=== PATIENT | male | born 1975 | race Caucasian/White ===

== ENCOUNTER → 2016-10-01 | Outpatient (REF) | payer MEDICARE, MEDICAID ==
[2016-10-01 18:36] LABS: ALBUMIN 4.6 GM/DL (3.2-5.2); ALBUMIN/GLOBULIN RATIO 1.59 (1.00-1.93); ALKALINE PHOSPHATASE 88 U/L (45-117); ALT/SGPT 37 U/L (12-78); ANION GAP 11 MEQ/L (8-16); AST/SGOT 23 U/L (15-37); BILIRUBIN,TOTAL 0.4 MG/DL (0.2-1.0); BLOOD UREA NITROGEN 4 MG/DL (7-18); CALCIUM LEVEL 9.4 MG/DL (8.5-10.1); CARBON DIOXIDE LEVEL 28 MEQ/L (21-32); CHLORIDE LEVEL 104 MEQ/L (98-107); CREATININE FOR GFR 0.74 MG/DL (0.70-1.30); GLOMERULAR FILTRATION RATE > 60.0 (>60); GLUCOSE, FASTING 83 MG/DL (70-105); SODIUM LEVEL 143 MEQ/L (136-145); TOTAL PROTEIN 7.5 GM/DL (6.4-8.2)
[2016-10-01 19:02] LABS: BASO % 0.7 % (0.0-1.0); EOS # 0.1 K/mm3 (0.0-0.50); EOS % 1.1 % (0.0-3.0); LARGE UNSTAINED CELL # 0.1 K/mm3 (0.0-0.4); LARGE UNSTAINED CELL % 1.8 % (0.0-4.0); MEAN CORPUSCULAR HEMOGLOBIN 30.7 pg (27.0-33.0); MEAN CORPUSCULAR HGB CONC 33.6 g/dl (32.0-36.5); MEAN CORPUSCULAR VOLUME 91.5 fl (80.0-96.0); MONO # 0.7 K/mm3 (0.0-0.8); MONO % 9.6 % (0.0-5.0); NEUTROPHILS # 3.9 K/mm3 (1.8-7.7); NEUTROPHILS % 57.9 % (36.0-66.0); PLATELET COUNT, AUTOMATED 209 k/mm3 (150-450); RED CELL DISTRIBUTION WIDTH 12.7 % (11.5-14.5); WHITE BLOOD COUNT 6.8 K/mm3 (4.0-10.0)
== END ==
LOC: M LABNEURO 16:56
PROVIDERS: ATTEND Psychiatry & Neurology Neurology
DX: G35 Multiple sclerosis (principal)

== ENCOUNTER → 2017-03-28 | Outpatient (REF) | payer MEDICARE, MEDICAID ==
[2017-03-28 17:37] LABS: BASO # 0.1 K/mm3 (0.0-0.2); BASO % 1.2 % (0.0-1.0); EOS # 0.2 K/mm3 (0.0-0.50); LARGE UNSTAINED CELL # 0.1 K/mm3 (0.0-0.4); LARGE UNSTAINED CELL % 1.7 % (0.0-4.0); LYMPH # 2.6 K/mm3 (1.5-4.5); LYMPH % 31.8 % (24.0-44.0); MEAN CORPUSCULAR HEMOGLOBIN 31.5 pg (27.0-33.0); MEAN CORPUSCULAR HGB CONC 33.6 g/dl (32.0-36.5); MONO # 0.7 K/mm3 (0.0-0.8); MONO % 9.6 % (0.0-5.0); NEUTROPHILS # 4.1 K/mm3 (1.8-7.7); NEUTROPHILS % 53.7 % (36.0-66.0); PLATELET COUNT, AUTOMATED 232 k/mm3 (150-450); RED CELL DISTRIBUTION WIDTH 13.2 % (11.5-14.5); WHITE BLOOD COUNT 7.7 K/mm3 (4.0-10.0)
== END ==
LOC: M LABNEURO 17:03
PROVIDERS: ATTEND Psychiatry & Neurology Neurology
DX: G35 Multiple sclerosis (principal)

== ENCOUNTER 2017-09-25 09:41 | Outpatient (CLI) | payer MEDICARE, MEDICAID ==
[2017-09-25] MEDS: diphenhydrAMINE 25 MG CAP PO (10:18)
[2017-09-25] MEDS: methylPREDNISolone INJ 125 MG/2 ML VIAL (J2930) IV (10:18)
[2017-09-25] MEDS: ACETAMINOPHEN TAB 650MG DOSE (2X325MG) PO (10:18)
[2017-09-25] MEDS: OCRELIZUMAB 300 MG in NS 250 ML IV (10:39)
== END 2017-09-25 14:00 | disposition home or self-care (01) ==
LOC: M INFU 09:41
DX: G35 Multiple sclerosis (principal); Z79.899 Other long term (current) drug therapy
CPT/HCPCS: 96365

== ENCOUNTER 2018-02-10 07:49 | Outpatient (CLI) | payer MEDICARE, MEDICAID ==
[2018-02-10] MEDS: 0.22 MICRON FILTER (METHACHOLINE/OCREVUS) XX (08:15)
[2018-02-10] MEDS: diphenhydrAMINE 25 MG CAP PO (08:35)
[2018-02-10] MEDS: ACETAMINOPHEN TAB 650MG DOSE (2X325MG) PO (08:36)
[2018-02-10] MEDS: methylPREDNISolone INJ 125 MG/2 ML VIAL (J2930) IV (08:36)
[2018-02-10] MEDS: OCRELIZUMAB 600 MG in NS 500 ML IV (08:59)
== END 2018-02-10 13:05 | disposition home or self-care (01) ==
LOC: M INFU 07:49
DX: G35 Multiple sclerosis (principal); Z79.899 Other long term (current) drug therapy
CPT/HCPCS: J2930

== ENCOUNTER → 2018-04-04 | Outpatient (REF) | payer MEDICARE, MEDICAID ==
[2018-04-04 13:51] LABS: TOTAL 25(OH) VITAMIN D 20.9 NG/ML (30.0-100.0)
== END ==
LOC: M LABNEURO 11:55
DX: E55.9 Vitamin D deficiency, unspecified (principal)
CPT/HCPCS: 82306

== ENCOUNTER 2018-08-13 12:22 | Outpatient (CLI) | payer MEDICARE, MEDICAID ==
[~2018-08-13] VITALS: Ht 188 cm; Wt 104.5 kg
[~2018-08-13 12:22] MED LIST: CLON0.5T8 PO; CLON1TAB8 PO; FOLI1TAB5 PO; NEUR300C PO; OCRE300I IV; TECF240C PO
[2018-08-13 12:30] VITALS: BP 138/75
[2018-08-13] MEDS ORDERED: 0.22 MICRON FILTER (METHACHOLINE/OCREVUS) XX ONE (12:45)
[2018-08-13] MEDS ORDERED: diphenhydrAMINE 25 MG CAP PO ONE (12:45)
[2018-08-13] MEDS ORDERED: methylPREDNISolone INJ 125 MG/2 ML VIAL (J2930) IV ONE (12:45)
[2018-08-13] MEDS ORDERED: ACETAMINOPHEN TAB 650MG DOSE (2X325MG) PO ONE (12:45)
[2018-08-13] MEDS ORDERED: OCRELIZUMAB 600 MG in NS 500 ML IV ONE (13:00)
[2018-08-13 13:50] VITALS: BP 130/76
[2018-08-13 14:20] VITALS: BP 136/78
[2018-08-13 15:31] VITALS: BP 131/76
[2018-08-13 16:20] VITALS: BP 130/83
[2018-08-13 17:30] VITALS: BP 142/82
== END 2018-08-13 17:30 ==
LOC: M INFU 12:22
PROVIDERS: ATTEND Psychiatry & Neurology Neurology
DX: G35 Multiple sclerosis (principal)
CPT/HCPCS: 96365; 96366; 96375; J2930

== ENCOUNTER 2019-02-09 10:03 | Outpatient (CLI) | payer MEDICARE, MEDICAID ==
[2019-02-09] VITALS (8 sets, daily range): BP systolic 125–147; BP diastolic 79–89
[~2019-02-09] VITALS: Ht 188 cm; Wt 104.5 kg
[~2019-02-09 10:03] MED LIST changes: +FOLI1TAB11 PO; -FOLI1TAB5 PO
[2019-02-09] MEDS ORDERED: 0.22 MICRON FILTER (METHACHOLINE/OCREVUS) XX ONE (10:30)
[2019-02-09] MEDS ORDERED: methylPREDNISolone INJ 125 MG/2 ML VIAL (J2930) IV ONE (10:30)
[2019-02-09] MEDS ORDERED: diphenhydrAMINE 25 MG CAP PO ONE (10:30)
[2019-02-09] MEDS ORDERED: ACETAMINOPHEN TAB 650MG DOSE (2X325MG) PO ONE (10:30)
[2019-02-09] MEDS ORDERED: OCRELIZUMAB 600 MG in NS 500 ML IV ONE (11:00)
== END 2019-02-09 16:00 | disposition home or self-care (01) ==
LOC: M INFU 10:03
PROVIDERS: ATTEND Psychiatry & Neurology Neurology
DX: G35 Multiple sclerosis (principal)
CPT/HCPCS: 96413; 96415; J2930

== ENCOUNTER 2019-08-13 09:16 | Outpatient (CLI) | payer MEDICARE, MEDICAID ==
[~2019-08-13] VITALS: Ht 188 cm; Wt 104.5 kg
[~2019-08-13 09:16] MED LIST changes: +CLON0.5T2 PO; -CLON0.5T8 PO
[2019-08-13 09:30] VITALS: BP 138/91
[2019-08-13 10:30] VITALS: BP 136/95
[2019-08-13] MEDS ORDERED: OCRELIZUMAB 600 MG in NS 500 ML IV ONE (10:30)
[2019-08-13] MEDS ORDERED: ACETAMINOPHEN TAB 650MG DOSE (2X325MG) PO ONE (10:30)
[2019-08-13] MEDS ORDERED: methylPREDNISolone INJ 125 MG/2 ML VIAL (J2930) IV ONE (10:30)
[2019-08-13] MEDS ORDERED: diphenhydrAMINE 25 MG CAP PO ONE (10:30)
[2019-08-13 11:30] VITALS: BP 133/88
[2019-08-13 12:00] VITALS: BP 144/99
[2019-08-13 12:30] VITALS: BP 143/88
[2019-08-13 13:30] VITALS: BP 131/82
== END 2019-08-13 13:40 | disposition home or self-care (01) ==
LOC: M INFU 09:16
PROVIDERS: ATTEND Psychiatry & Neurology Neurology
DX: G35 Multiple sclerosis (principal)
CPT/HCPCS: 96413; 96415; J2930

== ENCOUNTER 2020-02-10 10:02 | Outpatient (CLI) | payer MEDICARE, MEDICAID ==
[2020-02-10] VITALS (7 sets, daily range): BP systolic 121–162; BP diastolic 68–100
[~2020-02-10] VITALS: Ht 188 cm; Wt 105.0 kg
[2020-02-10] MEDS ORDERED: diphenhydrAMINE 25MG CAP PO ONE (10:30)
[2020-02-10] MEDS ORDERED: methylPREDNISolone INJ 125 MG/2 ML VIAL (J2930) IV ONE (10:30)
[2020-02-10] MEDS ORDERED: ACETAMINOPHEN TAB 650MG DOSE (2X325MG) PO ONE (10:30)
[2020-02-10] MEDS ORDERED: OCRELIZUMAB 600 MG in NS 500 ML IV ONE (10:45)
== END 2020-02-10 15:35 | disposition home or self-care (01) ==
LOC: M INFU 10:02
PROVIDERS: ATTEND Psychiatry & Neurology Neurology
DX: G35 Multiple sclerosis (principal)
CPT/HCPCS: 96375; 96413; 96415; J2930

== ENCOUNTER 2021-02-13 10:18 | Outpatient (CLI) | payer MEDICARE, MEDICAID ==
[2021-02-13] MEDS ORDERED: diphenhydrAMINE 25MG CAP PO ONE (10:30)
[2021-02-13] MEDS ORDERED: methylPREDNISolone 125MG 2ML VIAL IV ONE (10:30)
[2021-02-13] MEDS ORDERED: ACETAMINOPHEN TAB 650MG DOSE (2X325MG) PO ONE (10:30)
[2021-02-13] MEDS ORDERED: OCRELIZUMAB 600 MG in NS 500 ML IV ONE (10:30)
[2021-02-13 10:35] VITALS: BP 156/89
[2021-02-13 11:50] VITALS: BP 133/90
[2021-02-13 12:20] VITALS: BP 137/87
[2021-02-13 13:20] VITALS: BP 119/74
[2021-02-13 14:20] VITALS: BP 132/77
[2021-02-13 15:45] VITALS: BP 118/76
== END 2021-02-13 15:45 | disposition home or self-care (01) ==
LOC: M INFU 10:18
PROVIDERS: ATTEND Psychiatry & Neurology Neurology
DX: G35 Multiple sclerosis (principal)
CPT/HCPCS: 96375; 96413; 96415; J2930

== ENCOUNTER 2021-08-14 09:36 | Outpatient (CLI) | payer MEDICARE, MEDICAID ==
[~2021-08-14] VITALS: Ht 188 cm; Wt 109.0 kg
[2021-08-14] VITALS (7 sets, daily range): BP systolic 126–158; BP diastolic 75–91
[2021-08-14] MEDS ORDERED: ACETAMINOPHEN TAB 650MG DOSE (2X325MG) PO ONE (10:30)
[2021-08-14] MEDS ORDERED: OCRELIZUMAB 600 MG in NS 500 ML IV ONE (10:30)
[2021-08-14] MEDS ORDERED: methylPREDNISolone 125MG 2ML VIAL IV ONE (10:30)
[2021-08-14] MEDS ORDERED: diphenhydrAMINE 25MG CAP PO ONE (10:30)
== END 2021-08-14 15:40 | disposition home or self-care (01) ==
LOC: M INFU 09:36
PROVIDERS: ATTEND Psychiatry & Neurology Neurology
DX: G35 Multiple sclerosis (principal)
CPT/HCPCS: 96365; 96366; J2930

== ENCOUNTER 2022-02-22 10:31 | Outpatient (CLI) | payer MEDICARE, MEDICAID ==
[~2022-02-22] VITALS: Ht 188 cm; Wt 109.0 kg
[2022-02-22] VITALS (7 sets, daily range): BP systolic 121–155; BP diastolic 75–95
[2022-02-22] MEDS ORDERED: OCRELIZUMAB 600 MG in NS 500 ML IV ONE (11:00)
[2022-02-22] MEDS ORDERED: methylPREDNISolone 125MG 2ML VIAL IV ONE (11:00)
[2022-02-22] MEDS ORDERED: ACETAMINOPHEN TAB 650MG DOSE (2X325MG) PO ONE (11:00)
[2022-02-22] MEDS ORDERED: diphenhydrAMINE 25MG CAP PO ONE (11:00)
== END 2022-02-22 15:30 | disposition home or self-care (01) ==
LOC: M INFU 10:31
PROVIDERS: ATTEND Psychiatry & Neurology Neurology
DX: G35 Multiple sclerosis (principal)
CPT/HCPCS: 96365; 96366; J2930

== ENCOUNTER → 2022-08-22 | Outpatient (CLI) | payer MEDICARE, MEDICAID ==
[~2022-08-22] VITALS: Ht 188 cm; Wt 109.0 kg
[~2022-08-22] MED LIST changes: +ACETAMINOPHEN TAB 650MG DOSE (2X325MG) PO ONE; +OCRELIZUMAB 600 MG in NS 500 ML IV ONE; +diphenhydrAMINE 25MG CAP PO ONE; +methylPREDNISolone 125MG 2ML VIAL IV ONE
[2022-08-22 10:00] VITALS: BP 143/89
[2022-08-22 11:15] VITALS: BP 150/89
[2022-08-22 11:45] VITALS: BP 133/85
[2022-08-22 12:15] VITALS: BP 137/82
[2022-08-22 13:00] VITALS: BP 141/80
[2022-08-22 14:45] VITALS: BP 130/76
== END ==
LOC: M INFU 09:51
PROVIDERS: ATTEND Psychiatry & Neurology Neurology
DX: G35 Multiple sclerosis (principal)
CPT/HCPCS: 96365; 96366; J2930

== ENCOUNTER 2023-02-19 09:33 | Outpatient (CLI) | payer MEDICARE, MEDICAID ==
[~2023-02-19] VITALS: Ht 190.5 cm; Wt 107.2 kg
[~2023-02-19 09:33] MED LIST changes: -ACETAMINOPHEN TAB 650MG DOSE (2X325MG) PO ONE; -OCRELIZUMAB 600 MG in NS 500 ML IV ONE; -diphenhydrAMINE 25MG CAP PO ONE; -methylPREDNISolone 125MG 2ML VIAL IV ONE
[2023-02-19 09:40] VITALS: BP 154/88; O2SAT 95
[2023-02-19] MEDS ORDERED: methylPREDNISolone 125MG 2ML VIAL IV ONE (10:30)
[2023-02-19] MEDS ORDERED: ACETAMINOPHEN TAB 650MG DOSE (2X325MG) PO ONE (10:30)
[2023-02-19] MEDS ORDERED: diphenhydrAMINE 25MG CAP PO ONE (10:30)
[2023-02-19] MEDS ORDERED: OCRELIZUMAB 600 MG in NS 500 ML IV ONE (10:30)
[2023-02-19 10:45] VITALS: BP 133/77; O2SAT 97
[2023-02-19 11:15] VITALS: BP 126/71; O2SAT 96
[2023-02-19 12:45] VITALS: BP 134/84; O2SAT 97
[2023-02-19 14:18] VITALS: BP 132/74; O2SAT 93
== END 2023-02-19 14:20 ==
LOC: M INFU 09:33
PROVIDERS: ATTEND Psychiatry & Neurology Neurology
DX: G35 Multiple sclerosis (principal)
CPT/HCPCS: 96365; 96366; J2930

== ENCOUNTER 2023-08-21 09:26 | Outpatient (CLI) | payer MEDICARE, MEDICAID ==
[~2023-08-21] VITALS: Ht 188 cm; Wt 110.0 kg
[2023-08-21 09:50] VITALS: BP 152/88; O2SAT 97
[2023-08-21] MEDS: methylPREDNISolone 125MG 2ML VIAL IV ONE (10:24)
[2023-08-21] MEDS: ACETAMINOPHEN TAB 650MG DOSE (2X325MG) PO ONE (10:24)
[2023-08-21] MEDS: diphenhydrAMINE 25MG CAP PO ONE (10:24)
[2023-08-21] MEDS: OCRELIZUMAB 600 MG in NS 500 ML IV ONE (10:40)
[2023-08-21 11:15] VITALS: BP 132/79; O2SAT 95
[2023-08-21 11:45] VITALS: BP 137/82; O2SAT 97
[2023-08-21 14:35] VITALS: BP 127/77; O2SAT 93
== END 2023-08-21 09:50 | disposition home or self-care (01) ==
LOC: M INFU 09:26
PROVIDERS: ATTEND Psychiatry & Neurology Neurology
DX: G35 Multiple sclerosis (principal)
CPT/HCPCS: 96365; 96366; J2350; J2930

== ENCOUNTER 2024-02-24 07:38 | Outpatient (CLI) | payer MEDICARE, MEDICAID ==
[~2024-02-24] VITALS: Ht 182.9 cm; Wt 119.5 kg
[2024-02-24 08:00] VITALS: BP 159/87; O2SAT 100
[2024-02-24] MEDS: methylPREDNISolone 125MG 2ML VIAL IV ONE (08:12)
[2024-02-24] MEDS: ACETAMINOPHEN TAB 650MG DOSE (2X325MG) PO ONE (08:12)
[2024-02-24] MEDS: diphenhydrAMINE 25MG CAP PO ONE (08:12)
[2024-02-24 08:15] VITALS: BP 157/87; TEMP 98.2; O2SAT 97
[2024-02-24] MEDS: OCRELIZUMAB 600 MG in NS 500 ML IV ONE (08:35)
[2024-02-24 09:15] VITALS: BP 127/74; O2SAT 96
[2024-02-24 09:45] VITALS: BP 125/66; O2SAT 97
[2024-02-24 12:43] VITALS: BP 122/65; O2SAT 94
== END 2024-02-24 12:45 | disposition home or self-care (01) ==
LOC: M INFU 07:38
PROVIDERS: ATTEND Psychiatry & Neurology Neurology
DX: G35 Multiple sclerosis (principal)
CPT/HCPCS: 96365; 96366; 96367; J2350; J2919

== ENCOUNTER 2024-10-06 09:41 | Outpatient (CLI) | payer MEDICARE, MEDICAID ==
[~2024-10-06] VITALS: Ht 198.1 cm; Wt 105.5 kg
[2024-10-06] MEDS: ACETAMINOPHEN 325 MG TAB PO ONE (10:13)
[2024-10-06] MEDS: diphenhydrAMINE 25MG CAP PO ONE (10:13)
[2024-10-06] MEDS: methylPREDNISolone 125MG 2ML VIAL IV ONE (10:13)
[2024-10-06 10:19] VITALS: BP 178/95; O2SAT 97
[2024-10-06] MEDS: OCRELIZUMAB 600 MG in NS 500 ML IV ONE (10:39)
[2024-10-06 11:10] VITALS: BP 135/73; O2SAT 100
[2024-10-06 14:40] VITALS: BP 141/74; O2SAT 95
== END 2024-10-06 14:45 ==
LOC: M INFU 09:41
PROVIDERS: ATTEND Psychiatry & Neurology Neurology
DX: G35 Multiple sclerosis (principal)
CPT/HCPCS: 96365; 96366; 96375; J2350; J2919

== ENCOUNTER 2025-04-28 08:16 | Outpatient (CLI) | payer MEDICARE, MEDICAID ==
[~2025-04-28] VITALS: Ht 182.9 cm; Wt 104.5 kg
[2025-04-28 08:30] VITALS: BP 157/92; O2SAT 96
[2025-04-28] MEDS: ACETAMINOPHEN 325 MG TAB PO ONE (08:52)
[2025-04-28] MEDS: OCRELIZUMAB 600 MG in NS 500 ML IV ONE (09:25)
[2025-04-28 10:00] VITALS: BP 140/75; O2SAT 95
[2025-04-28 10:30] VITALS: BP 141/72; O2SAT 96
[2025-04-28 11:00] VITALS: BP 138/70; O2SAT 97
[2025-04-28 12:30] VITALS: BP 140/71; O2SAT 97
[2025-04-28 13:12] VITALS: BP 144/77; O2SAT 93
== END 2025-04-28 13:20 ==
LOC: M INFU 08:16
PROVIDERS: ATTEND Psychiatry & Neurology Neurology
DX: G35 Multiple sclerosis (principal)
CPT/HCPCS: 96365; 96366; 96375; J2350; J2919